=== PATIENT | male | born 1990 | race Hispanic/Latino ===

== ENCOUNTER 2018-01-14 13:49 | Emergency (ER) | payer MEDICAID ==
[2018-01-14] MEDS ORDERED: KEPPRA 1,000 MG/NS 0.75% 100ML 1,000 MG/100 ML BAG IV ONE (14:01)
[2018-01-14] MEDS ORDERED: ATIVAN IV ONE ×2 (14:01→15:41)
[2018-01-14 14:47] LABS: Hemoglobin 13.8 gm/dl (11.8-15.2); Mean Corpuscular HGB Conc 34 % (32-34); Mean Corpuscular Hemoglobin 34 pg (28-32); Mean Corpuscular Volume 102 fl (84-94); Platelet Count 142 K/mm3 (140-440); Red Blood Count 4.02 M/mm3 (3.65-5.03); Red Cell Distribution Width 13.1 % (13.2-15.2)
[2018-01-14 14:58] LABS: BUN/Creatinine Ratio 38; Blood Urea Nitrogen 23 mg/dL (9-20); Calcium 8.8 mg/dL (8.4-10.2); Hemolysis Index 121
[2018-01-14 15:09] LABS: Bilirubin,Urine NEG (Negative); Blood,Urine NEG (Negative); Color,Urine Yellow (Yellow); Hyaline Casts,Urine 1 /LPF; Protein,Urine <15 mg/dL mg/dL (Negative); Urobilinogen,Urine < 2.0 mg/dL (<2.0); WBC,Urine < 1.0 /HPF (0.0-6.0)
[2018-01-14] MEDS ORDERED: NACL 0.9% 1000 ML 1,000 ML IV ONE (15:34)
--- NOTE | 2018-01-14 15:43 | Emergency Department Report ---
HPI - General Chief Complaint: Seizure Time Seen by Provider: 01/14/18 13:59 - HPI HPI: The patient is a 27-year-old male with a history of seizures and cerebral palsy , noncommunicative at baseline, presents for evaluation of seizure. Per EMS, nursing facility staff reported the patient experience seizure earlier this morning, constant for seconds, severe, self resolving. Per the patient's mom, the patient has a long-standing history of seizures since childhood and that breakthrough seizures are typical for the patient. 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, quadraplegia, arrhythmia - Social History Smoking Status: Unknown if ever smoked - Medications Home Medications: Home Medications Medication Instructions Recorded Confirmed Last Taken Type Clobazam [Onfi] 10 mg PO BID 02/17/16 02/24/16 02/24/[address] [Depakote Dr] 500 mg PO BID 02/17/16 02/24/16 02/24/16 History Docusate Calcium 100 mg PO DAILY 02/17/16 02/24/16 02/24/16 History Glycopyrrolate [Robinul] 1 mg PO TID 02/17/16 02/24/16 02/24/16 History Lacosamide [Vimpat] 200 mg PO BID 02/17/16 02/24/16 02/24/16 History Loratadine [Claritin] 10 mg PO DAILY 02/17/16 02/24/16 02/24/16 History QUEtiapine [SEROquel] 25 mg PO BID 02/17/16 02/24/16 02/24/16 History Topiramate [Topamax] 150 mg PO BID 02/17/16 02/24/16 02/24/16 History levETIRAcetam [Keppra TAB] 100 mg PO BID 02/17/16 02/24/16 02/24/16 History Polyethylene Glycol 3350 [Miralax 17 gm PO QDAY #7 packet 02/26/16 Unknown Rx 3350] ED Review of Systems ROS: Stated complaint: SEIZURES Other details as noted in HPI Comment: Unobtainable due to pts medical conditions (non-communicative) Physical Exam - Physical Exam Vital Signs: Vital Signs 01/14/18 01/14/18 14:04 15:08 Temperature 97.9 F Pulse Rate 64 67 Respiratory 16 14 Rate Blood Pressure 90/55 Blood Pressure 86/54 [Left] O2 Sat by Pulse 95 95 Oximetry Physical Exam: General: well-nourished, well-developed, no acute distress Head: Normocephalic, atraumatic Eyes: normal sclera, EOMI, PERRL ENT: Mucous membranes are pale and dry Neck: trachea midline, neck supple, No neck stiffness, no cervical adenopathy Respiratory: Breath sounds equal bilaterally, no wheezing, rales, or rhonchi Cardio: S1 and S2 present, no murmurs, rubs, gallops, capillary refill is delayed Abdomen: Normoactive bowel sounds, soft abdomen, no rigidity, no guarding or rebound tenderness Musc: No pitting edema Skin: No rash Neuro: alert, noncommunicative, moves upper extremities spontaneously, no facial drooping, no obvious gross motor deficit in the upper extremities Psych: Normal affect and behavior per the patient's mother ED Course Vital Signs 01/14/18 01/14/18 14:04 15:08 Temperature 97.9 F Pulse Rate 64 67 Respiratory 16 14 Rate Blood Pressure 90/55 Blood Pressure 86/54 [Left] O2 Sat by Pulse 95 95 Oximetry ED Medical Decision Making - Lab Data Result diagrams: 01/14/18 14:08 01/14/18 14:08 - Medical Decision Making The patient was seen and examined by myself. The patient is placed on a property assessment monitor and continuous pulse ox. On initial evaluation, the patient was found to be in no distress. Evaluation orders were placed. The patient is given IV Keppra for treatment of seizure, and 1 L normal saline fluid bolus for treatment of his dehydration. Lab results are grossly unremarkable. The patient was reevaluated and found to have normal vital signs. The patient was monitored in the emergency department for greater than 2 hours without any seizure-like activity. The patient is stable for discharge with outpatient follow-up. The patient is given follow-up and return instructions. The patient expressed understanding and agreed with the plan. The patient is discharged in stable condition. Critical care attestation.: If time is entered above; I have spent that time in minutes in the direct care of this critically ill patient, excluding procedure time. 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
[2018-01-14 16:05] VITALS: BP 99/55
[2018-01-14 16:19] LABS: Basophils % (Manual) 0 % (0.0-1.8); Eosinophils % (Manual) 0 % (0.0-4.3); Total Cells Counted 100
[2018-01-14 16:21] LABS: Anisocytosis 1+; Large Platelets 1+; Platelet Estimate Consistent w Auto
== END 2018-01-14 17:41 | disposition home or self-care (01) ==
LOC: ED 13:49
DX: G40.909 Epilepsy, unspecified, not intractable, without status epilepticus (principal); G80.2 Spastic hemiplegic cerebral palsy; E86.0 Dehydration; Z88.0 Allergy status to penicillin; Z88.1 Allergy status to other antibiotic agents; Z88.5 Allergy status to narcotic agent
CPT/HCPCS: 36415; 80048; 81001; 83880; 85007; 85025; 96374; 96375; 96376; 99285; J1953; J2060; J7030

== ENCOUNTER 2018-10-21 08:31 | Inpatient (IN) | payer MEDICAID ==
[2018-10-21] MEDS ORDERED: ATIVAN IV ONE (09:03)
[2018-10-21] MEDS ORDERED: KEPPRA 1,000 MG/NS 0.75% 100ML 1,000 MG/100 ML BAG IV ONE (09:03)
[2018-10-21] MEDS ORDERED: TYLENOL PR ONE ×2 (10:12→10:20)
[2018-10-21 10:18] LABS: Hematocrit 41.6 % (35.5-45.6); Hemoglobin 14.3 gm/dl (11.8-15.2); Mean Corpuscular HGB Conc 34 % (32-34); Mean Corpuscular Volume 100 fl (84-94); Platelet Count 111 K/mm3 (140-440); Red Blood Count 4.15 M/mm3 (3.65-5.03); Red Cell Distribution Width 12.3 % (13.2-15.2)
[2018-10-21 10:38] LABS: Alanine Aminotransferase 22 units/L (7-56); Albumin 3.8 g/dL (3.9-5); BUN/Creatinine Ratio 19; Blood Urea Nitrogen 15 mg/dL (9-20); Calcium 9.1 mg/dL (8.4-10.2); Hemolysis Index 87
--- NOTE | 2018-10-21 10:41 | XRay Report ---
Portable chest: Aspiration. The lungs are incompletely expanded. The right lung appears generally clear. The left lung base is not optimally visualized but there's no definite pulmonary finding. The heart is normal in size. Impression: Limited evaluation of the left lung base. No definite pathology.
[2018-10-21 10:55] LABS: Basophils % (Manual) 0 % (0.0-1.8); Eosinophils % (Manual) 0 % (0.0-4.3); Total Cells Counted 100
[2018-10-21 10:56] LABS: Anisocytosis 1+; Platelet Estimate Consistent w Auto
[2018-10-21] MEDS ORDERED: NACL 0.9% 500 ML 500 ML IV ONE (11:40)
[2018-10-21] MEDS ORDERED: NACL 0.9% 1000 ML 1,000 ML IV ONE (13:11)
[2018-10-21] MEDS ORDERED: NACL 0.9% 1000 ML IV ONE (13:12)
[2018-10-21] MEDS ORDERED: VANCOMYCIN/NS 1 GM/250 ML 1 GM/250 ML BAG IV ONE (14:00)
--- NOTE | 2018-10-21 15:36 | Emergency Department Report ---
ED General Adult HPI - General Chief complaint: Seizure Stated complaint: SEIZURE Time Seen by Provider: 10/21/18 08:59 Source: EMS, RN notes reviewed Mode of arrival: Stretcher Limitations: Other - History of Present Illness Initial comments: Patient presents to the emergency department initially for seizures. Patient has a history of seizures along with cerebral palsy and mental retardation. The patient presents to the ED without family initially and information was gathered from the half-way notes and EMS. Patient was found to be febrile and tachycardic on arrival. -: Sudden Severity scale (0 -10): 0 Improves with: none Worsens with: none Associated Symptoms: denies other symptoms Treatments Prior to Arrival: none - Related Data Home Medications Medication Instructions Recorded Confirmed Last Taken Clobazam [Onfi] 10 mg PO BID 02/17/16 02/24/16 02/24/[address] [Depakote Dr] 500 mg PO BID 02/17/16 02/24/16 02/24/16 Docusate Calcium 100 mg PO DAILY 02/17/16 02/24/16 02/24/16 Glycopyrrolate [Robinul] 1 mg PO TID 02/17/16 02/24/16 02/24/16 Lacosamide [Vimpat] 200 mg PO BID 02/17/16 02/24/16 02/24/16 Loratadine [Claritin] 10 mg PO DAILY 02/17/16 02/24/16 02/24/16 QUEtiapine [SEROquel] 25 mg PO BID 02/17/16 02/24/16 02/24/16 Topiramate [Topamax] 150 mg PO BID 02/17/16 02/24/16 02/24/16 levETIRAcetam [Keppra TAB] 100 mg PO BID 02/17/16 02/24/16 02/24/16 Previous Rx's Medication Instructions Recorded Last Taken Type Polyethylene Glycol 3350 [Miralax 17 gm PO QDAY #7 packet 02/26/16 Unknown Rx 3350] Allergies Allergy/AdvReac Type Severity Reaction Status Date / Time codeine Allergy Itching Verified 10/21/18 08:50 levofloxacin [From Levaquin] Allergy Rash Verified 10/21/18 08:50 Penicillins Allergy Itching Verified 10/21/18 08:50 ED Review of Systems ROS: Stated complaint: SEIZURE Other details as noted in HPI Comment: Unobtainable due to pts medical conditions ED Past Medical Hx - Past Medical History Previous Medical History?: Yes Hx Congestive Heart Failure: No Hx Diabetes: No Hx Seizures: Yes Hx Asthma: No Hx COPD: No Hx Dementia: No Hx HIV: No Additional medical history: Cerebral Palsy, mental retardation, arrhythmias, - Social History Smoking Status: Unknown if ever smoked - Medications Home Medications: Home Medications Medication Instructions Recorded Confirmed Last Taken Type Clobazam [Onfi] 10 mg PO BID 02/17/16 02/24/16 02/24/[address] [Depakote Dr] 500 mg PO BID 02/17/16 02/24/16 02/24/16 History Docusate Calcium 100 mg PO DAILY 02/17/16 02/24/16 02/24/16 History Glycopyrrolate [Robinul] 1 mg PO TID 02/17/16 02/24/16 02/24/16 History Lacosamide [Vimpat] 200 mg PO BID 02/17/16 02/24/16 02/24/16 History Loratadine [Claritin] 10 mg PO DAILY 02/17/16 02/24/16 02/24/16 History QUEtiapine [SEROquel] 25 mg PO BID 02/17/16 02/24/16 02/24/16 History Topiramate [Topamax] 150 mg PO BID 02/17/16 02/24/16 02/24/16 History levETIRAcetam [Keppra TAB] 100 mg PO BID 02/17/16 02/24/16 02/24/16 History Polyethylene Glycol 3350 [Miralax 17 gm PO QDAY #7 packet 02/26/16 Unknown Rx 3350] ED Physical Exam - General Limitations: Other General appearance: other (seizing) - Head Head exam: Present: atraumatic, normocephalic - Eye Eye exam: Present: PERRL - ENT ENT exam: Present: mucous membranes dry - Neck Neck exam: Present: normal inspection - Respiratory Respiratory exam: Present: other (Diminished BS). Absent: respiratory distress - Cardiovascular Cardiovascular Exam: Present: normal rhythm, tachycardia - GI/Abdominal GI/Abdominal exam: Present: soft, normal bowel sounds. Absent: distended, tenderness - Rectal Rectal exam: Present: deferred - Extremities Exam Extremities exam: Present: other (contractures) - Neurological Exam Neurological exam: Present: other (seizing) - Psychiatric Psychiatric exam: Present: other (not able to assess due to the patient's condition) - Skin Skin exam: Present: warm, dry, intact ED Course Vital Signs 10/21/18 10/21/18 10/21/18 08:34 08:40 08:41 Temperature 99.0 F 99 F Pulse Rate 152 H Respiratory 36 H 22 Rate Blood Pressure 109/64 Blood Pressure [Left] O2 Sat by Pulse 81 L Oximetry 10/21/18 10/21/18 10/21/18 08:46 09:00 09:15 Temperature 99.9 F H Pulse Rate 149 H 141 H 133 H Respiratory 48 H 41 H 28 H Rate Blood Pressure 109/64 Blood Pressure 136/81 [Left] O2 Sat by Pulse 81 L 82 L 95 Oximetry 10/21/18 10/21/18 10/21/18 09:16 09:30 09:46 Temperature Pulse Rate 128 H 153 H 139 H Respiratory 44 H 57 H 32 H Rate Blood Pressure 132/64 132/64 132/64 Blood Pressure [Left] O2 Sat by Pulse 88 91 82 L Oximetry 10/21/18 10/21/18 10/21/18 10:00 10:16 10:30 Temperature Pulse Rate 137 H 126 H 121 H Respiratory 49 H 55 H 51 H Rate Blood Pressure 98/68 98/68 99/60 Blood Pressure [Left] O2 Sat by Pulse 83 L 80 L 82 L Oximetry 10/21/18 10/21/18 10/21/18 10:46 10:49 11:00 Temperature Pulse Rate 148 H 122 H Respiratory 47 H 24 48 H Rate Blood Pressure 99/60 102/61 Blood Pressure [Left] O2 Sat by Pulse 80 L 97 82 L Oximetry 10/21/18 10/21/18 10/21/18 11:16 11:30 11:38 Temperature 98.8 F Pulse Rate 153 H 120 H 118 H Respiratory 42 H 44 H 30 H Rate Blood Pressure 102/61 103/61 Blood Pressure 108/61 [Left] O2 Sat by Pulse 81 L 83 L 94 Oximetry 10/21/18 10/21/18 10/21/18 11:46 12:00 12:16 Temperature Pulse Rate 114 H 113 H 107 H Respiratory 37 H 37 H 32 H Rate Blood Pressure 103/61 103/61 132/74 Blood Pressure 132/74 [Left] O2 Sat by Pulse 91 94 Oximetry 10/21/18 10/21/18 10/21/18 12:30 12:46 13:00 Temperature Pulse Rate 112 H 117 H 130 H Respiratory 33 H 41 H 26 H Rate Blood Pressure 105/60 105/60 132/74 Blood Pressure [Left] O2 Sat by Pulse 84 Oximetry 10/21/18 10/21/18 10/21/18 13:16 13:30 13:46 Temperature Pulse Rate 125 H 127 H 119 H Respiratory 34 H 43 H 29 H Rate Blood Pressure 132/74 132/74 130/72 Blood Pressure [Left] O2 Sat by Pulse 81 L 84 81 L Oximetry 10/21/18 10/21/18 10/21/18 14:00 14:15 14:16 Temperature Pulse Rate 108 H 107 H Respiratory 33 H 24 35 H Rate Blood Pressure 130/72 127/105 Blood Pressure [Left] O2 Sat by Pulse 92 97 95 Oximetry 10/21/18 10/21/18 10/21/18 14:30 14:45 14:46 Temperature 98.3 F Pulse Rate 103 H 103 H 103 H Respiratory 25 H 30 H 32 H Rate Blood Pressure 118/48 118/48 Blood Pressure [Left] O2 Sat by Pulse 95 95 95 Oximetry 10/21/18 10/21/18 10/21/18 15:00 15:16 15:30 Temperature Pulse Rate 101 H 102 H 101 H Respiratory 28 H 29 H 33 H Rate Blood Pressure 127/51 127/51 124/55 Blood Pressure [Left] O2 Sat by Pulse 95 96 93 Oximetry 10/21/18 10/21/18 10/21/18 15:46 16:00 16:16 Temperature Pulse Rate 101 H 102 H 115 H Respiratory 26 H 31 H 21 Rate Blood Pressure 124/55 125/84 125/84 Blood Pressure [Left] O2 Sat by Pulse 92 88 94 Oximetry ED Medical Decision Making - Lab Data Result diagrams: 10/21/18 10:07 10/21/18 10:07 Lab Results 10/21/18 10/21/18 10/21/18 Range/Units 10:07 10:07 14:46 WBC 12.9 H (4.5-11.0) K/mm3 RBC 4.15 (3.65-5.03) M/mm3 Hgb 14.3 (11.8-15.2) gm/dl Hct 41.6 (35.5-45.6) % MCV 100 H (84-94) fl MCH 35 H (28-32) pg MCHC 34 (32-34) % RDW 12.3 L (13.2-15.2) % Plt Count 111 L (140-440) K/mm3 [place] % (Auto) Property Adjuster Add Manual Diff Complete Total Counted 100 Seg Neuts % (Manual) 79.0 H (40.0-70.0) % Band Neutrophils % 0 % Lymphocytes % (Manual) 8.0 L (13.4-35.0) % Reactive Lymphs % (Man) 0 % Monocytes % (Manual) 13.0 H (0.0-7.3) % Eosinophils % (Manual) 0 (0.0-4.3) % Basophils % (Manual) 0 (0.0-1.8) % Metamyelocytes % 0 % Myelocytes % 0 % Promyelocytes % 0 % Blast Cells % 0 % Nucleated RBC % Not Reportable Seg Neutrophils # Man 10.2 H (1.8-7.7) K/mm3 Band Neutrophils # 0.0 K/mm3 Lymphocytes # (Manual) 1.0 L (1.2-5.4) K/mm3 Abs React Lymphs (Man) 0.0 K/mm3 Monocytes # (Manual) 1.7 H (0.0-0.8) K/mm3 Eosinophils # (Manual) 0.0 (0.0-0.4) K/mm3 Basophils # (Manual) 0.0 (0.0-0.1) K/mm3 Metamyelocytes # 0.0 K/mm3 Myelocytes # 0.0 K/mm3 Promyelocytes # 0.0 K/mm3 Blast Cells # 0.0 K/mm3 WBC Morphology Not Reportable Hypersegmented Neuts Not Reportable Hyposegmented Neuts Not Reportable Hypogranular Neuts Not Reportable Smudge Cells Not Reportable Toxic Granulation Not Reportable Toxic Vacuolation Not Reportable Dohle Bodies Not Reportable Pelger-Huet Anomaly Not Reportable Ranjith Rods Not Reportable Platelet Estimate Consistent w auto Clumped Platelets Not Reportable Plt Clumps, EDTA Not Reportable Large Platelets Not Reportable Giant Platelets Not Reportable Platelet Satelliting Not Reportable Plt Morphology Comment Not Reportable RBC Morphology Not Reportable Dimorphic RBCs Not Reportable Polychromasia Not Reportable Hypochromasia Not Reportable Poikilocytosis Not Reportable Anisocytosis 1+ Microcytosis Not Reportable Macrocytosis Not Reportable Spherocytes Not Reportable Pappenheimer Bodies Not Reportable Sickle Cells Not Reportable Target Cells Not Reportable Tear Drop Cells Not Reportable Ovalocytes Not Reportable Helmet Cells Not Reportable Jarrett-Metompkin Bodies Not Reportable [place] Rings Not Reportable [place] Cells Not Reportable Bite Cells Not Reportable Crenated Cell Not Reportable Elliptocytes Not Reportable Acanthocytes (Spur) Not Reportable Rouleaux Not Reportable Hemoglobin C Crystals Not Reportable Schistocytes Not Reportable Malaria parasites Not Reportable Ronald Bodies Not Reportable Hem Pathologist Commnt No Sodium 133 L (137-145) mmol/L Potassium 3.9 (3.6-5.0) mmol/L Chloride 100.6 (98-107) mmol/L Carbon Dioxide 18 L (22-30) mmol/L Anion Gap 18 mmol/L BUN 15 (9-20) mg/dL Creatinine 0.8 (0.8-1.5) mg/dL Estimated GFR > 60 ml/min BUN/Creatinine Ratio 19 % Glucose 93 (75-100) mg/dL Lactic Acid 0.90 (0.7-2.0) mmol/L Calcium 9.1 (8.4-10.2) mg/dL Total Bilirubin 0.60 (0.1-1.2) mg/dL AST 33 (5-40) units/L ALT 22 (7-56) units/L Alkaline Phosphatase 42 (35-129) units/L Total Protein 7.1 (6.3-8.2) g/dL Albumin 3.8 L (3.9-5) g/dL Albumin/Globulin Ratio 1.2 % - Radiology Data Radiology results: report reviewed - Medical Decision Making She given 2 mg Ativan and IV Keppra which aborted his seizures The patient was initially febrile on his presentation to the ED Patient became Hypoxic during his ED stay Patient received 30cc/kg bolus of IV fluids without production of urine IV antibiotics given Patient's mother states she is manic currently and is ready to go home to sleep Critical care time in (mins) excluding proc time.: 45 Critical care attestation.: If time is entered above; I have spent that time in minutes in the direct care of this critically ill patient, excluding procedure time. ED Disposition Clinical Impression: SIRS (systemic inflammatory response syndrome), Seizure Disposition: OP ADMIT IP TO THIS HOSP Is pt being admited?: Yes Does the pt Need Aspirin: No Condition: Fair Referrals: HILTON GROVER [Other] - 3-5 Days
[2018-10-21] MEDS ORDERED: SODIUM CHLORIDE FLUSH SYRINGE 10 ML IV PRN (18:03)
[2018-10-21] MEDS ORDERED: ZOFRAN IV PRN (18:03)
[2018-10-21] MEDS ORDERED: DILAUDID IV PRN (18:04)
[2018-10-21] MEDS ORDERED: NACL 0.9% 1000 ML 1,000 ML IV SCH (19:00)
[2018-10-21] MEDS: SODIUM CHLORIDE FLUSH SYRINGE 10 ML IV SCH (22:45)
[2018-10-21] MEDS: TYLENOL PO PRN (23:14)
[2018-10-21] MEDS: KEPPRA 750 MG in NACL 0.9% 100 ML IV SCH (23:26)
[2018-10-21] MEDS ORDERED: HALDOL IM ONE (23:41)
--- NOTE | 2018-10-22 01:35 | Event Note ---
Date: 10/21/18 See H/p in reports Status epilepticus Cerebral palsy Fever
--- NOTE | 2018-10-22 01:58 | History and Physical Report ---
CHIEF COMPLAINT: Seizures continuously. HISTORY OF PRESENT ILLNESS: A 28-year-old male with history of cerebral palsy and seizure disorder, brought in for continuous seizures. Also, febrile. The patient was given IV Keppra after which the patient settled down at bed. The patient is on seizure medications, Keppra and Depakote at shelter. Slight fever is present. No cough, no shortness of breath. PAST MEDICAL HISTORY: As mentioned, significant for history of CVA, seizure disorder, bipolar disorder, cerebral palsy. CURRENT MEDICATIONS: Includes Seroquel 25 mg twice a day, Keppra, Depakote, Vimpat 200 mg twice a day. SOCIAL HISTORY: Does not smoke. Lives in shelter. PAST SURGICAL HISTORY: Unavailable. FAMILY HISTORY: Unavailable. CURRENT MEDICATIONS: Include Vimpat 200 mg twice a day. PHYSICAL EXAMINATION: GENERAL: Young male, lethargic. VITAL SIGNS: Blood pressure is 109/58, temperature 101.9, pulse 99, respirations 38, settled down to 20. HEENT: Unremarkable. Pupils are equal and reactive. NECK: Supple, no lymphadenopathy, no thyromegaly. LUNGS: Clear to auscultation and percussion. Good air entry. CARDIOVASCULAR: S1, S2 heard. No gallop, no murmur, no rub. Apical impulse in left fifth intercostal space and midclavicular line. ABDOMEN: Soft and benign. No hepatosplenomegaly. No guarding. EXTREMITIES: Good pedal pulses. CENTRAL NERVOUS SYSTEM: Mental retardation present. Slightly lethargic. LABORATORY DATA: Significant for white count of 12,900, H and H of 14.3 and 41.6, platelet count is 111,000. Electrolytes are normal. Sodium is 133, slightly low. BUN and creatinine normal. Albumin is slightly low at 3.8. Chest x-ray shows limited evaluation of the left lung base, no definite pathology. Chest x-ray, no acute findings. ASSESSMENT AND PLAN: 1. Status epilepticus. The patient was given IV Keppra 1000 mg. The patient to be continued on IV Keppra 750 q. 12. Also, continue Vimpat. Neurology consult requested. 2. Systemic inflammatory response syndrome. The patient has fever. Source of infection unclear. The patient initiated on IV ceftriaxone to cover gram positives and gram negatives. 3. Cerebral palsy. Supportive care. 4. Deep venous thrombosis prophylaxis, Lovenox 40 mg subcutaneous daily. 5. Malnutrition, very mild. Dietary supplements as required. JOB# [id number] MARGARITA/LEATHA BRADY
[2018-10-22 06:27] LABS: Hematocrit 33.7 % (35.5-45.6); Hemoglobin 11.3 gm/dl (11.8-15.2); Mean Corpuscular HGB Conc 34 % (32-34); Mean Corpuscular Volume 103 fl (84-94); Platelet Count 104 K/mm3 (140-440); Red Blood Count 3.27 M/mm3 (3.65-5.03); Red Cell Distribution Width 12.5 % (13.2-15.2)
[2018-10-22 06:48] LABS: Alanine Aminotransferase 16 units/L (7-56); Albumin 3.2 g/dL (3.9-5); BUN/Creatinine Ratio 23; Blood Urea Nitrogen 14 mg/dL (9-20); Calcium 8.2 mg/dL (8.4-10.2); Hemolysis Index 5
[2018-10-22 08:44] LABS: Band Neutrophils # (Manual) 2.1 K/mm3; Total Cells Counted 100
[2018-10-22 08:45] LABS: Anisocytosis 1+; Platelet Estimate Consistent w Auto
--- NOTE | 2018-10-22 09:12 | Progress Note ---
Assessment and Plan Assessment and plan: Patient is a 28 year old male with hx of Cerebral Palsy, seizures and delayed Mental development who presents to the ED with seizures associated with fever without any noted source. Patient is A [facility] Resident and was noted to be febrile and transported via EMS to the hospital. Seizure Fever of unknown origin-?secondary acute Bronchitis. Cough with congestion Metabolic Encephalopathy- ?Chronic Thrombocytopenia Leukocytosis-Resolved Metabolic Acidosis Hypoxia SIRS CEREBRAL PALSY Delayed Mental Development [facility] Resident Malnutrition Plan Continue supportive care Seizure Precautions If continue seizure and fever may consider central origin for fever, at that time will purse a LP and ID consult Continue empiric abx Continue appropriate home meds- Mom provided U/A ordered but not collected ?y Repeat ABG FOR Resolution of Hypoxia, and may need CT chest if no resolution DVT/GI prophy History Interval history: Patient is seen today for:seizure Seen and examined at bedside; 24hour events reviewed; nursing staff ; Remains confused, agitated, ?baseline. No fever noted blood pressure controlled Hospitalist Physical - Physical exam Narrative exam: VITAL SIGNS: Reviewed. GENERAL: Agitated. Vital signs as documented. HEAD: No signs of head trauma. EYES: Pupils are equal. Extraocular motions intact. EARS: Hearing grossly intact. MOUTH: Oropharynx is normal. NECK: No adenopathy, no JVD. CHEST: Chest with crackles breath sounds bilaterally. No wheezing CARDIAC: Regular rate and rhythm. S1 and S2, without murmurs, gallops, or r ubs. VASCULAR: No Edema. Peripheral pulses normal and equal in all extremities. ABDOMEN: Soft, without detectable tenderness. No sign of distention. No rebound or guarding, and no masses palpated. Bowel Sounds normal. MUSCULOSKELETAL: Good range of motion of all major joints. Extremities without clubbing, cyanosis or edema. NEUROLOGIC EXAM: Awake, unable to access orientation due to baseline mental status No focal sensory or strength deficits. Speech normal. Follows commands. PSYCHIATRIC: Unable to access SKIN: No rash or lesions. On restraints - Constitutional Vitals: Temp Pulse Resp BP Pulse Ox 98.5 F 96 H 24 114/65 94 10/22/18 05:03 10/22/18 05:03 10/22/18 05:03 10/22/18 05:03 10/22/18 08:49 Results - Labs CBC & Chem 7: 10/22/18 04:43 10/22/18 04:43 Labs: Laboratory Last Values WBC 10.1 K/mm3 (4.5-11.0) 10/22/18 04:43 RBC 3.27 M/mm3 (3.65-5.03) L 10/22/18 04:43 Hgb 11.3 gm/dl (11.8-15.2) L D 10/22/18 04:43 Hct 33.7 % (35.5-45.6) L D 10/22/18 04:43 MCV 103 fl (84-94) H 10/22/18 04:43 MCH 35 pg (28-32) H 10/22/18 04:43 MCHC 34 % (32-34) 10/22/18 04:43 RDW 12.5 % (13.2-15.2) L 10/22/18 04:43 Plt Count 104 K/mm3 (140-440) L 10/22/18 04:43 Archer % (Auto) Hardness Inspector 10/22/18 04:43 Add Manual Diff Complete 10/22/18 04:43 Total Counted 100 10/22/18 04:43 Seg Neuts % (Manual) 55.0 % (40.0-70.0) 10/22/18 04:43 Band Neutrophils % 21.0 % 10/22/18 04:43 Lymphocytes % (Manual) 15.0 % (13.4-35.0) 10/22/18 04:43 Reactive Lymphs % (Man) 0 % 10/22/18 04:43 Monocytes % (Manual) 7.0 % (0.0-7.3) 10/22/18 04:43 Eosinophils % (Manual) 1.0 % (0.0-4.3) 10/22/18 04:43 Basophils % (Manual) 1.0 % (0.0-1.8) 10/22/18 04:43 Metamyelocytes % 0 % 10/22/18 04:43 Myelocytes % 0 % 10/22/18 04:43 Promyelocytes % 0 % 10/22/18 04:43 Blast Cells % 0 % 10/22/18 04:43 Nucleated RBC % Not Reportable 10/22/18 04:43 Seg Neutrophils # Man 5.6 K/mm3 (1.8-7.7) 10/22/18 04:43 Band Neutrophils # 2.1 K/mm3 10/22/18 04:43 Lymphocytes # (Manual) 1.5 K/mm3 (1.2-5.4) 10/22/18 04:43 Abs React Lymphs (Man) 0.0 K/mm3 10/22/18 04:43 Monocytes # (Manual) 0.7 K/mm3 (0.0-0.8) 10/22/18 04:43 Eosinophils # (Manual) 0.1 K/mm3 (0.0-0.4) 10/22/18 04:43 Basophils # (Manual) 0.1 K/mm3 (0.0-0.1) 10/22/18 04:43 Metamyelocytes # 0.0 K/mm3 10/22/18 04:43 Myelocytes # 0.0 K/mm3 10/22/18 04:43 Promyelocytes # 0.0 K/mm3 10/22/18 04:43 Blast Cells # 0.0 K/mm3 10/22/18 04:43 WBC Morphology Not Reportable 10/22/18 04:43 Hypersegmented Neuts Not Reportable 10/22/18 04:43 Hyposegmented Neuts Not Reportable 10/22/18 04:43 Hypogranular Neuts Not Reportable 10/22/18 04:43 Smudge Cells Not Reportable 10/22/18 04:43 Toxic Granulation Not Reportable 10/22/18 04:43 Toxic Vacuolation Not Reportable 10/22/18 04:43 Dohle Bodies Not Reportable 10/22/18 04:43 Pelger-Huet Anomaly Not Reportable 10/22/18 04:43 Ranjith Rods Not Reportable 10/22/18 04:43 Platelet Estimate Consistent w auto 10/22/18 04:43 Clumped Platelets Not Reportable 10/22/18 04:43 Plt Clumps, EDTA Not Reportable 10/22/18 04:43 Large Platelets Not Reportable 10/22/18 04:43 Giant Platelets Not Reportable 10/22/18 04:43 Platelet Satelliting Not Reportable 10/22/18 04:43 Plt Morphology Comment Not Reportable 10/22/18 04:43 RBC Morphology Not Reportable 10/22/18 04:43 Dimorphic RBCs Not Reportable 10/22/18 04:43 Polychromasia Not Reportable 10/22/18 04:43 Hypochromasia Not Reportable 10/22/18 04:43 Poikilocytosis Not Reportable 10/22/18 04:43 Anisocytosis 1+ 10/22/18 04:43 Microcytosis Not Reportable 10/22/18 04:43 Macrocytosis Not Reportable 10/22/18 04:43 Spherocytes Not Reportable 10/22/18 04:43 Pappenheimer Bodies Not Reportable 10/22/18 04:43 Sickle Cells Not Reportable 10/22/18 04:43 Target Cells Not Reportable 10/22/18 04:43 Tear Drop Cells Not Reportable 10/22/18 04:43 Ovalocytes Not Reportable 10/22/18 04:43 Helmet Cells Not Reportable 10/22/18 04:43 Jarrett-[place] Bodies Not Reportable 10/22/18 04:43 Flom Rings Not Reportable 10/22/18 04:43 [place] Cells Not Reportable 10/22/18 04:43 Bite Cells Not Reportable 10/22/18 04:43 Crenated Cell Not Reportable 10/22/18 04:43 Elliptocytes Not Reportable 10/22/18 04:43 Acanthocytes (Spur) Not Reportable 10/22/18 04:43 Rouleaux Not Reportable 10/22/18 04:43 Hemoglobin C Crystals Not Reportable 10/22/18 04:43 Schistocytes Not Reportable 10/22/18 04:43 Malaria parasites Not Reportable 10/22/18 04:43 Ronald Bodies Not Reportable 10/22/18 04:43 Hem Pathologist Commnt No 10/22/18 04:43 APTT 27.6 Sec. (24.2-36.6) 10/21/18 14:46 POC ABG pH 7.317 (7.35-7.45) L 10/22/18 04:31 POC ABG pCO2 35.3 (35-45) 10/22/18 04:31 POC ABG pO2 61 (80-105) L 10/22/18 04:31 POC ABG HCO3 18.0 10/22/18 04:31 POC ABG Total CO2 19 10/22/18 04:31 POC ABG O2 Sat 89 10/22/18 04:31 POC ABG Base Excess -8 10/22/18 04:31 FiO2 28 % 10/22/18 04:31 Sodium 144 mmol/L (137-145) D 10/22/18 04:43 Potassium 3.9 mmol/L (3.6-5.0) 10/22/18 04:43 Chloride 110.5 mmol/L (98-107) H 10/22/18 04:43 Carbon Dioxide 19 mmol/L (22-30) L 10/22/18 04:43 Anion Gap 18 mmol/L 10/22/18 04:43 BUN 14 mg/dL (9-20) 10/22/18 04:43 Creatinine 0.6 mg/dL (0.8-1.5) L 10/22/18 04:43 Estimated GFR > 60 ml/min 10/22/18 04:43 BUN/Creatinine Ratio 23 % 10/22/18 04:43 Glucose 66 mg/dL (75-100) L 10/22/18 04:43 Lactic Acid 0.90 mmol/L (0.7-2.0) 10/21/18 14:46 Calcium 8.2 mg/dL (8.4-10.2) L 10/22/18 04:43 Total Bilirubin 0.50 mg/dL (0.1-1.2) 10/22/18 04:43 AST 23 units/L (5-40) 10/22/18 04:43 ALT 16 units/L (7-56) 10/22/18 04:43 Alkaline Phosphatase 37 units/L (35-129) 10/22/18 04:43 Total Protein 5.9 g/dL (6.3-8.2) L 10/22/18 04:43 Albumin 3.2 g/dL (3.9-5) L 10/22/18 04:43 Albumin/Globulin Ratio 1.2 % 10/22/18 04:43
[2018-10-22] MEDS: TYLENOL PO PRN (09:30)
[2018-10-22] MEDS: LOVENOX SUB-Q SCH (09:31)
[2018-10-22] MEDS: SODIUM CHLORIDE FLUSH SYRINGE 10 ML IV SCH ×2 (09:31→21:33)
[2018-10-22] MEDS: KEPPRA 750 MG in NACL 0.9% 100 ML IV SCH (09:31)
[2018-10-22] MEDS ORDERED: LOVENOX SUB-Q SCH (10:00)
[2018-10-22] MEDS: ROCEPHIN/NS 2 GM/100 ML 2 GM/100 ML BAG IV SCH (10:09)
[2018-10-22] MEDS ORDERED: PROVENTIL IH PRN (10:12)
[2018-10-22 12:33] LABS: Bilirubin,Urine NEG (Negative); Blood,Urine NEG (Negative); Color,Urine Yellow (Yellow); Mucus,Urine FEW /HPF; Protein,Urine <15 mg/dL mg/dL (Negative); Urobilinogen,Urine < 2.0 mg/dL (<2.0)
[2018-10-22] MEDS: DUONEB *Not for PRN Use IH SCH ×3 (13:25→20:30)
[2018-10-22] MEDS ORDERED: CLOBAZAM 10 MG PO SCH (13:52)
[2018-10-22] MEDS ORDERED: NON-FORMULARY (Clonazepam [Clonazepam] 1 MG) PO PRN (13:52)
[2018-10-22] MEDS ORDERED: TYLENOL PO PRN (13:52)
[2018-10-22] MEDS ORDERED: NON-FORMULARY (Alprazolam [Xanax Tab] 2 MG) PO PRN (13:52)
[2018-10-22] MEDS ORDERED: KEPPRA PO SCH (14:30)
[2018-10-22] MEDS ORDERED: XANAX PO PRN (14:33)
[2018-10-22] MEDS: KEPPRA PO SCH ×2 (15:26→21:33)
--- NOTE | 2018-10-22 15:58 | Progress Note ---
Subjective Date of service: 10/22/18 Interval history: patient seen and full consult is dictated for neuro he is on multiple antiseizure meds xanax, klonopen, onfi Keppra and Vimpat this combo would be expected to provide full seizure control... presently seizure free Objective - Vital Sign Vital Signs - 12hr 10/22/18 10/22/18 10/22/18 04:29 05:03 08:49 Temperature 98.5 F Pulse Rate 96 H Respiratory 24 Rate Blood Pressure 114/65 O2 Sat by Pulse 92 94 94 Oximetry 10/22/18 13:47 Temperature 98.8 F Pulse Rate Respiratory 24 Rate Blood Pressure 124/65 O2 Sat by Pulse Oximetry - Laboratory Findings CBC and BMP: 10/22/18 04:43 10/22/18 04:43 Abnormal Lab Findings: Abnormal Labs 10/21/18 10/21/18 10/22/18 10:07 10:07 04:31 WBC 12.9 H RBC Hgb Hct MCV 100 H MCH 35 H RDW 12.3 L Plt Count 111 L Seg Neuts % (Manual) 79.0 H Lymphocytes % (Manual) 8.0 L Monocytes % (Manual) 13.0 H Seg Neutrophils # Man 10.2 H Lymphocytes # (Manual) 1.0 L Monocytes # (Manual) 1.7 H POC ABG pH 7.317 L POC ABG pCO2 POC ABG pO2 61 L Sodium 133 L Chloride Carbon Dioxide 18 L Creatinine Glucose Calcium Total Protein Albumin 3.8 L 10/22/18 10/22/18 10/22/18 04:43 04:43 11:36 WBC RBC 3.27 L Hgb 11.3 L D Hct 33.7 L D MCV 103 H MCH 35 H RDW 12.5 L Plt Count 104 L Seg Neuts % (Manual) Lymphocytes % (Manual) Monocytes % (Manual) Seg Neutrophils # Man Lymphocytes # (Manual) Monocytes # (Manual) POC ABG pH POC ABG pCO2 34.3 L POC ABG pO2 55 L Sodium Chloride 110.5 H Carbon Dioxide 19 L Creatinine 0.6 L Glucose 66 L Calcium 8.2 L Total Protein 5.9 L Albumin 3.2 L
[2018-10-22] MEDS ORDERED: D50W (25GM) Syringe IV ONE (16:11)
[2018-10-22] MEDS: VIMPAT PO SCH ×2 (17:21→22:00)
[2018-10-22] MEDS: ROBINUL PO SCH ×2 (17:26→21:33)
[2018-10-22] MEDS: TOPAMAX PO SCH ×2 (17:27→22:00)
[2018-10-22] MEDS ORDERED: NON-FORMULARY (Lacosamide [Vimpat] 200 MG) PO SCH (22:00)
[2018-10-22] MEDS ORDERED: NON-FORMULARY (Levetiracetam [Keppra Tab] 1,000 MG) PO SCH (22:00)
[2018-10-23] MEDS: DUONEB *Not for PRN Use IH SCH ×3 (02:43→13:43)
[2018-10-23 06:24] LABS: Hematocrit 30.8 % (35.5-45.6); Hemoglobin 10.5 gm/dl (11.8-15.2); Mean Corpuscular Volume 102 fl (84-94); Red Blood Count 3.01 M/mm3 (3.65-5.03)
[2018-10-23 06:25] LABS: Mean Corpuscular HGB Conc 34 % (32-34); Platelet Count 115 K/mm3 (140-440); Red Cell Distribution Width 12.4 % (13.2-15.2)
--- NOTE | 2018-10-23 06:44 | Consultation ---
HISTORY OF PRESENT ILLNESS: This is a 28-year-old white male that is transferred from a nursing facility, where he had been a resident in [place], [place]. The patient is admitted at this point for further evaluation and management of seizures and presents to the Emergency Room with seizures, with prior history of cerebral palsy. He was found to be febrile, tachycardic when he presented, had a prior history of a seizure disorder, cerebral palsy, mental retardation, also had cardiac arrhythmias in the past, who presented to the hospital, his pulse rate was 148 but reduced to 122 after initial treatment. The patient had a temperature is 98.8 at that point, and 98.3 later on. He had a high white count of 12,900. He had a sodium of 133, was initially assessed and was felt to have an acute inflammatory disease, systemic, possible aspiration and the patient was subsequently admitted to the hospital for further assessment of condition. Family members are not available to speak to. He had been previously taking medications. The seizures are not listed. He has prior medical history of allergies to levofloxacin, penicillin, codeine, and on admission he was noted to be at this point, his temperature is 98.9. His O2 sats are 92%. His pulse rate is 96%. His blood pressure is 114/65. He is not speaking. He does move upper extremities. He is in padded restraints for his hands. He is not speaking. Does not appear to be agitated, cannot follow verbal commands. Cranial nerves 2-12 are otherwise intact. Moves all extremities equally. No seizure activity is present. No tremors or asterixis. No evidence of any meningismus is noted. IMPRESSION: 1. Metabolic encephalopathy with low sodium. 2. Seizure disorder. 3. Febrile illness by history. Medications at this point are Xanax 2 mg b.i.d. and he takes clobazam, Onfi 10 mg b.i.d. for seizures and Klonopin 1 mg every 8 hours for seizures and valproic acid 500 mg b.i.d. for seizures. He also takes lacosamide 200 mg b.i.d. and Keppra 1000 mg b.i.d. Recommend continuing the above medications. Obviously, the use of Onfi, Xanax and Klonopin are a bit overlapping, since they are all benzodiazepines. I cannot rule out some form of sedative effect due to the fact that the patient is taking three benzodiazepines. He may have extremely poorly controlled seizures. It is unusual to see patients taking these many benzodiazepines, although may have had intractable seizures prior to this time. I will follow the patient with you, would recommend getting EEG. JOB# [id number] SNEHAL/LEATHA
[2018-10-23 06:54] LABS: BUN/Creatinine Ratio 17; Blood Urea Nitrogen 10 mg/dL (9-20); Calcium 8.2 mg/dL (8.4-10.2); Hemolysis Index 13
[2018-10-23] MEDS: ROBINUL PO SCH (07:59)
--- NOTE | 2018-10-23 09:05 | Cat Scan Report ---
CT CHEST WITHOUT CONTRAST: HISTORY: Pneumonia. COMPARISON: AP chest dated 10/21/18. TECHNIQUE: Helical CT in 1.25mm intervals without IV contrast. Sagittal and coronal reformatted images. FINDINGS: Thyroid gland: Normal. Tracheobronchial tree: Normal. Esophagus: Normal. Heart: Normal. Pericardium: Normal. Mediastinum: Normal. Lung Angel: There is patchy infiltrate throughout the left lower lobe. Left upper lobe and right lung are clear. No underlying parenchymal lung disease is appreciated. Pleural Spaces: Small left pleural effusion measuring up to 1 cm in thickness. Musculoskeletal: Intact. Mild scoliosis is noted. IMPRESSION: Left lower lobe infiltrate and small left pleural effusion.
[2018-10-23] MEDS: VIMPAT PO SCH (11:07)
[2018-10-23] MEDS: KEPPRA PO SCH (11:07)
[2018-10-23] MEDS: TOPAMAX PO SCH (11:08)
[2018-10-23] MEDS: LOVENOX SUB-Q SCH (11:09)
[2018-10-23] MEDS: ROCEPHIN/NS 2 GM/100 ML 2 GM/100 ML BAG IV SCH (11:19)
--- NOTE | 2018-10-23 11:46 | Discharge Summary ---
Providers - Providers Date of Admission: 10/21/18 18:03 Attending physician: MELY BULLARD MD 10/21/18 18:04 Consult to Physician [CONS] Routine Comment: Consulting Provider: WILLEM AVILA Physician Instructions: Reason For Exam: recurrent seizures 10/22/18 15:30 Speech Therapy Evaluation and Treat [CONS] Routine Reason For Exam: coughing when drinking Hospitalization Reason for admission: SEIZURE WITH HYPOXA Condition: Stable Hospital course: Patient is a 28 year old male with hx of Cerebral Palsy, seizures and delayed Mental development who presents to the ED with seizures associated with fever without any noted source. Patient is A correction Resident and was noted to be febrile and transported via EMS to the hospital. Patient was noted to be h ypoxic and treated with o2, IMAGING STUDIES CONFIRMED PNEUMONIA, LIKELY ASPIRATION IN NATURE, Patient showed some improvement with initiation of abx. and is stable for discharge to complete abx outpatient. Sepsis Seizure Acute Respiratory failure with hypoxia Acute Bronchitis Left lobar Pneumonia Cough with congestion Metabolic Encephalopathy- ?Chronic Thrombocytopenia Leukocytosis-Resolved Metabolic Acidosis Hypoxia SIRS CEREBRAL PALSY Delayed Mental Development [facility] Resident Malnutrition Disposition: DC/[place]-03 [facility] C[facility] Time spent for discharge: 35 mins Core Measure Documentation - Palliative Care Palliative Care/ Comfort Measures: Not Applicable - Core Measures Any of the following diagnoses?: none - VTE Discharge Requirements Deep Vein Thrombosis/Pulmonary Embolism Present on Admission: No Exam - Physical Exam Narrative exam: VITAL SIGNS: Reviewed. GENERAL: Vital signs as documented. HEAD: No signs of head trauma. EYES: Pupils are equal. Extraocular motions intact. EARS: Hearing grossly intact. MOUTH: Oropharynx is normal. NECK: No adenopathy, no JVD. CHEST: Chest with crackles breath sounds bilaterally. No wheezing CARDIAC: Regular rate and rhythm. S1 and S2, without murmurs, gallops, or rubs. VASCULAR: No Edema. Peripheral pulses normal and equal in all extremities. ABDOMEN: Soft, without detectable tenderness. No sign of distention. No rebound or guarding, and no masses palpated. Bowel Sounds normal. MUSCULOSKELETAL: Good range of motion of all major joints. Extremities without clubbing, cyanosis or edema. NEUROLOGIC EXAM: Awake, unable to access orientation due to baseline mental status No focal sensory or strength deficits. Speech normal. Follows commands. PSYCHIATRIC: Unable to access SKIN: No rash or lesions. - Constitutional Vitals: Temp Pulse Resp BP Pulse Ox 98.0 F 88 20 97/49 95 10/23/18 05:33 10/23/18 07:41 10/23/18 07:41 10/23/18 05:33 10/23/18 07:42 Plan Activity: advance as tolerated, fall precautions Diet: regular Follow up with: HILTON GROVER [Other] - 3-5 Days Prescriptions: Clindamycin [Clindamycin CAP] 300 mg PO Q6H #28 capsule Saccharomyces Boulardii [Florastor] 250 mg PO DAILY #30 capsule
[2018-10-23 12:27] VITALS: BP 114/64
== END 2018-10-23 14:00 | DRG 871 ==
LOC: ED 08:31 → 3A 18:03
PROVIDERS: ADMIT Internal Medicine; ATTEND Internal Medicine
PROC: 4A033R1 Measurement of Arterial Saturation, Peripheral, Percutaneous Approach (ICD-10-PCS; principal; 2018-10-22)
DX: A41.9 Sepsis, unspecified organism (principal); J69.0 Pneumonitis due to inhalation of food and vomit; J96.01 Acute respiratory failure with hypoxia; G93.41 Metabolic encephalopathy; G40.911 Epilepsy, unspecified, intractable, with status epilepticus; G80.9 Cerebral palsy, unspecified; E44.1 Mild protein-calorie malnutrition; J20.9 Acute bronchitis, unspecified; E87.2 Acidosis; D69.6 Thrombocytopenia, unspecified; R62.50 Unspecified lack of expected normal physiological development in childhood; F31.9 Bipolar disorder, unspecified; F79 Unspecified intellectual disabilities; Z68.22 Body mass index [BMI] 22.0-22.9, adult; Z79.899 Other long term (current) drug therapy; Z88.5 Allergy status to narcotic agent; Z88.0 Allergy status to penicillin; Z88.1 Allergy status to other antibiotic agents
CPT/HCPCS: 36415; 36600; 71045; 71250; 80048; 80053; 81001; 82140; 82803; 85007; 85025; 85027; 85730; 87040; 94640; 94760; 96361; 96365; 96375; G0378; J0696; J1630; J1650; J1953; J2060; J3370; J7030; J7040